=== PATIENT | female | born 1930 | race Caucasian/White ===

== ENCOUNTER 2019-11-21 12:41 | Inpatient (IN) ==
[2019-11-21] MEDS ORDERED: Morphine Sulfate 2 MG/ML SYRINGE IVP ONE (13:07)
[2019-11-21 14:31] LABS: Prothrombin Time 11.9 Seconds (9.4-12.1)
[2019-11-21 14:34] LABS: Activated Partial Thrombo Time 33.3 Seconds (26.0-36.0)
[2019-11-21 14:35] LABS: Basophils % 0.3 %; Eosinophils % 0.3 %; Hematocrit 44.2 % (35.3-44.9); Hemoglobin 14.8 g/dL (11.5-15.4); Immature Granulocytes % 1.5 % (0-4); Lymphocytes # 0.4 K/mcL (0.6-4.6); Lymphocytes % 3.7 %; Mean Corpuscular HGB Conc 33.5 g/dL (31.6-35.5); Mean Corpuscular Hemoglobin 30.4 pg (28.0-33.3); Mean Corpuscular Volume 90.8 fL (83.0-100.0); Mean Platelet Volume 10.4 fL (9.4-12.4); Monocytes # 0.4 K/mcL (0.0-1.3); Monocytes % 3.8 %; Neutrophils # 9.8 K/mcL (1.6-8.9); Platelet Count 176 K/mcL (140-400); Red Blood Count 4.87 M/mcL (3.82-4.97); Red Cell Distribution Width 13.3 % (11.5-14.5); Segmented Neutrophils % 90.4 %; White Blood Count 10.8 K/mcL (4.3-11.1)
[2019-11-21 14:49] LABS: BUN/Creatinine Ratio 16 (6-26); Blood Urea Nitrogen 15 mg/dL (8-23); Calcium 9.5 mg/dL (8.6-10.3); Carbon Dioxide 27 mEq/L (23-29); Chloride 105 mEq/L (98-107); Glucose 133 mg/dL (70-105); Osmolality,Calculated 293 (280-300); Potassium 3.5 mEq/L (3.5-5.1); Sodium 140 mEq/L (136-145); eGFR For African Americans > 60 (> 60); eGFR For Non-African Americans 56 (> 60)
[2019-11-21 14:53] LABS: Troponin I 0.08 ng/mL (< 0.04)
[2019-11-21] MEDS ORDERED: Ondansetron 4 MG/2 ML VIAL IVP PRN (16:28)
[2019-11-21] MEDS ORDERED: *HR* HYDROcodone/Acet 5/325 mg TABLET PO PRN (16:28)
[2019-11-21] MEDS ORDERED: *HR* OxyCODONE Immed Rel 5 MG TABLET PO PRN (16:28)
[2019-11-21] MEDS ORDERED: Naloxone 0.4 MG/ML INJ IVP PRN (16:28)
[2019-11-21] MEDS ORDERED: Acetaminophen 325 MG TABLET PO PRN (16:28)
[2019-11-21] MEDS ORDERED: Perflutren Lipid Microsphere 1.3 ML in 0.9 % Sodium Chloride 8.7 ML IVP PRN (16:38)
[2019-11-21] MEDS ORDERED: Morphine Sulfate 2 MG/ML SYRINGE IVP PRN (17:13)
[2019-11-21] MEDS ORDERED: *HR* HYDROmorphone (PF) 1 MG/ML SYRINGE IVP PRN (17:14)
[2019-11-21] MEDS: Acetaminophen 325 MG TABLET PO SCH (18:34)
[2019-11-21] MEDS ORDERED: *HR* Metoprolol 5 MG/5 ML VIAL IVP PRN (19:24)
[2019-11-21] MEDS: *HR* Heparin 5,000 UNIT/ML VIAL SQ SCH (21:26)
[2019-11-21] MEDS: Pantoprazole 40 MG VIAL IVP SCH (21:26)
[2019-11-22] MEDS: Acetaminophen 325 MG TABLET PO SCH ×5 (01:01→23:11)
[2019-11-22 04:28] LABS: Hematocrit 40.5 % (35.3-44.9); Hemoglobin 13.8 g/dL (11.5-15.4); Mean Corpuscular HGB Conc 34.1 g/dL (31.6-35.5); Mean Corpuscular Hemoglobin 30.8 pg (28.0-33.3); Mean Corpuscular Volume 90.4 fL (83.0-100.0); Mean Platelet Volume 10.4 fL (9.4-12.4); Platelet Count 164 K/mcL (140-400); Red Blood Count 4.48 M/mcL (3.82-4.97); Red Cell Distribution Width 13.3 % (11.5-14.5); White Blood Count 9.1 K/mcL (4.3-11.1)
[2019-11-22 04:38] LABS: INR 1.2; Prothrombin Time 13.4 Seconds (9.4-12.1)
[2019-11-22 04:56] LABS: BUN/Creatinine Ratio 17 (6-26); Blood Urea Nitrogen 15 mg/dL (8-23); Calcium 8.6 mg/dL (8.6-10.3); Carbon Dioxide 23 mEq/L (23-29); Chloride 104 mEq/L (98-107); Glucose 132 mg/dL (70-105); Magnesium 1.7 mg/dL (1.6-2.6); Osmolality,Calculated 285 (280-300); Phosphorous 2.6 mg/dL (2.7-4.5); Potassium 3.2 mEq/L (3.5-5.1); Sodium 136 mEq/L (136-145); eGFR For African Americans > 60 (> 60); eGFR For Non-African Americans > 60 (> 60)
[2019-11-22] MEDS: *HR* Heparin 5,000 UNIT/ML VIAL SQ SCH (05:58)
[2019-11-22] MEDS: Pantoprazole 40 MG VIAL IVP SCH (08:38)
[2019-11-22] MEDS ORDERED: *HR* OxyCODONE Immed Rel 5 MG TABLET PO PRN ×2 (09:53→09:56)
[2019-11-22] MEDS ORDERED: Morphine Sulfate 2 MG/ML SYRINGE IVP PRN (09:54)
[2019-11-22] MEDS ORDERED: Aspirin 325 MG TABLET PO ONE (10:38)
[2019-11-22] MEDS ORDERED: *HR* Heparin 5,000 UNIT/ML VIAL IVP PRN ×2 (10:39)
[2019-11-22] MEDS ORDERED: *HR* Heparin 5,000 UNIT/ML VIAL IVP ONE (10:39)
[2019-11-22] MEDS ORDERED: Morphine Sulfate 2 MG/ML SYRINGE IVP ONE (10:39)
[2019-11-22] MEDS ORDERED: Heparin 25,000 UNIT/250 ML D5W 25,000 UNIT/250 ML IV.SOLN IVC SCH (10:45)
[2019-11-22] MEDS ORDERED: *HR* Promethazine 25 MG/ML VIAL IVP PRN (10:47)
[2019-11-22] MEDS ORDERED: Isovue-370 500 ML BOTTLE IVP ONE (10:56)
[2019-11-22] MEDS ORDERED: Nitroprusside 50 MG in D5% in Water 250 ML IVC SCH (11:00)
[2019-11-22] MEDS ORDERED: Nitroglycerin 0.4 MG TAB.SUBL SL ONE (11:05)
[2019-11-22] MEDS ORDERED: Nitroglycerin 0.4 MG TAB.SUBL SL PRN (11:08)
[2019-11-22 11:24] LABS: Heparin anti-factor XA UFH 0.14 IU/mL (0.30-0.70)
[2019-11-22 11:25] LABS: INR 1.2; Prothrombin Time 13.5 Seconds (9.4-12.1)
[2019-11-22] MEDS ORDERED: Heparin 1,000 UNITS/500 mL 500 ML ONE (13:48)
[2019-11-22] MEDS ORDERED: *HR* Heparin 10,000 UNIT/10 ML VIAL ONE (13:48)
[2019-11-22] MEDS ORDERED: 0.9 % Sodium Chloride 2,000 ML ONE (13:48)
[2019-11-22] MEDS ORDERED: ISOVUE-370 200 ML INFUS..BTL ONE (13:49)
[2019-11-22] MEDS ORDERED: Nitroglycerin 1,000 MCG/10 ML VIAL IV ONE (13:49)
[2019-11-22] MEDS ORDERED: *HR* Midazolam HCl 2 MG/2 ML VIAL ONE (14:02)
[2019-11-22] MEDS ORDERED: *HR* FentaNYL (PF) 100 MCG/2 ML VIAL ONE (14:03)
[2019-11-22] MEDS: 0.9 % Sodium Chloride w KCl 40 MEQ/1,000 ML MLS IVC SCH ×2 (16:26→23:17)
[2019-11-23] MEDS: Acetaminophen 325 MG TABLET PO SCH ×4 (05:05→23:36)
[2019-11-23] MEDS: 0.9 % Sodium Chloride w KCl 40 MEQ/1,000 ML MLS IVC SCH (07:38)
[2019-11-23] MEDS: Pantoprazole 40 MG VIAL IVP SCH (07:39)
[2019-11-23 08:34] LABS: Basophils % 0.5 %; Hemoglobin 12.5 g/dL (11.5-15.4); Mean Corpuscular Volume 90.9 fL (83.0-100.0); Platelet Count 137 K/mcL (140-400); Red Cell Distribution Width 13.9 % (11.5-14.5)
[2019-11-23 08:36] LABS: Eosinophils # 0.4 K/mcL (0.0-0.6); Eosinophils % 5.5 %; Hematocrit 37.9 % (35.3-44.9); Immature Granulocytes % 0.6 % (0-4); Immature Platelets 4.7 % (1.1-6.1); Lymphocytes # 0.5 K/mcL (0.6-4.6); Lymphocytes % 6.5 %; Monocytes # 0.4 K/mcL (0.0-1.3); Monocytes % 4.7 %; Neutrophils # 6.4 K/mcL (1.6-8.9); Nucleated Red Blood Cells 0.3 /100 WBC (0); Red Blood Count 4.17 M/mcL (3.82-4.97); Segmented Neutrophils % 82.2 %; White Blood Count 7.8 K/mcL (4.3-11.1)
[2019-11-23 08:52] LABS: Platelet Estimate Normal (Normal); Reactive Lymphocytes Present (Not Present); Toxic Granulation Present (Not Present)
[2019-11-23] MEDS ORDERED: Aspirin Enteric Coated 81 MG Tablet PO SCH (09:00)
[2019-11-23 09:03] LABS: BUN/Creatinine Ratio 15 (6-26); Blood Urea Nitrogen 13 mg/dL (8-23); Calcium 7.3 mg/dL (8.6-10.3); Carbon Dioxide 23 mEq/L (23-29); Chloride 111 mEq/L (98-107); Glucose 104 mg/dL (70-105); Osmolality,Calculated 286 (280-300); Potassium 4.1 mEq/L (3.5-5.1); Sodium 138 mEq/L (136-145); eGFR For African Americans > 60 (> 60); eGFR For Non-African Americans 60 (> 60)
[2019-11-23] MEDS ORDERED: Vancomycin 1,000 MG VIAL ONE (14:57)
[2019-11-23] MEDS ORDERED: Ethanol\\Acetic Acid\\Na Ace\\Ben 1,000 ML IRRIG.SOLN IR ONE (14:57)
[2019-11-23] MEDS ORDERED: *HR* FentaNYL (PF) 100 MCG/2 ML VIAL ONE ×2 (14:58→16:26)
[2019-11-23] MEDS ORDERED: *HR* Propofol 200 MG/20 ML VIAL IVP ONE (14:58)
[2019-11-23] MEDS ORDERED: *HR* Rocuronium Bromide 50 MG/5 ML VIAL ONE (14:59)
[2019-11-23] MEDS ORDERED: Dexamethasone 4 MG/ML VIAL ONE (14:59)
[2019-11-23] MEDS ORDERED: Ondansetron 4 MG/2 ML VIAL ONE (14:59)
[2019-11-23] MEDS ORDERED: Lidocaine -MPF 2% 2 ML VIAL ONE (14:59)
[2019-11-23] MEDS ORDERED: *HR* Succinylcholine 200 MG/10 ML VIAL IVP ONE (14:59)
[2019-11-23] MEDS ORDERED: Albumin Human 5% 0 GM/0 ML IV.SOLN ONE (15:45)
[2019-11-23] MEDS ORDERED: Acetaminophen IV 1,000 MG/100 ML BAG ONE (15:46)
[2019-11-23] MEDS ORDERED: *HR* HYDROmorphone PF 0.5 MG/0.5 ML SYRINGE IVP PRN (15:58)
[2019-11-23] MEDS ORDERED: *HR* FentaNYL (PF) 100 MCG/2 ML VIAL IVP PRN (15:58)
[2019-11-23] MEDS ORDERED: *HR* Etomidate 40 MG/20 ML VIAL IVP ONE (16:09)
[2019-11-23] MEDS ORDERED: *HR* HYDROMORPHONE 2 MG/ML VIAL ONE (16:34)
[2019-11-23] MEDS ORDERED: *HR* PHENYLEPHRINE 1,000 MCG/10 ML SYRINGE IVP ONE (16:56)
[2019-11-23 17:46] LABS: Hematocrit 39.5 % (35.3-44.9); Hemoglobin 12.8 g/dL (11.5-15.4)
[2019-11-23] MEDS ORDERED: HYDROcodone BIT/Homatropine 5 MG TABLET PO PRN (18:38)
[2019-11-23] MEDS ORDERED: *HR* Promethazine 25 MG/ML VIAL IVP PRN (18:38)
[2019-11-23] MEDS ORDERED: MOM Conc 10 ML UD.LIQ PO PRN (18:38)
[2019-11-23] MEDS ORDERED: Sennosides 8.6 MG TABLET PO PRN (18:38)
[2019-11-23] MEDS ORDERED: *HR* Metoprolol 5 MG/5 ML VIAL IVP PRN (18:38)
[2019-11-23] MEDS ORDERED: Naloxone 0.4 MG/ML INJ IVP PRN ×2 (18:38)
[2019-11-23] MEDS ORDERED: Dextrose Gel 15 GM/37.5 ML TUBE PO PRN ×2 (18:38)
[2019-11-23] MEDS ORDERED: Morphine Sulfate 2 MG/ML SYRINGE IVP PRN (18:38)
[2019-11-23] MEDS ORDERED: D5% in Water 1,000 ML IVC PRN (18:38)
[2019-11-23] MEDS ORDERED: Ondansetron 4 MG/2 ML VIAL IVP PRN (18:38)
[2019-11-23] MEDS ORDERED: *HR* Dextrose 50 % in Water (Vial) 50 ML VIAL IVP PRN (18:38)
[2019-11-23] MEDS ORDERED: Nitroglycerin 0.4 MG TAB.SUBL SL PRN (18:38)
[2019-11-23] MEDS: Ascorbic Acid 500 MG TABLET PO SCH (21:17)
[2019-11-23] MEDS: Ringers Solution, Lactated 1,000 ML IVC SCH (21:30)
[2019-11-23] MEDS: CeFAZolin 2 GM/120 ML BAG IVPB SCH (23:33)
[2019-11-24] MEDS: Acetaminophen 325 MG TABLET PO SCH ×4 (05:45→23:49)
[2019-11-24] MEDS ORDERED: *HR* Heparin 5,000 UNIT/ML VIAL SQ SCH (06:00)
[2019-11-24] MEDS: Ascorbic Acid 500 MG TABLET PO SCH ×2 (07:56→15:59)
[2019-11-24] MEDS: Multivit/Ca/Min/Fe/FA 1 TAB TABLET PO SCH (07:56)
[2019-11-24] MEDS: CeFAZolin 2 GM/120 ML BAG IVPB SCH (07:57)
[2019-11-24] MEDS: Pantoprazole 40 MG VIAL IVP SCH (07:59)
[2019-11-24] MEDS: Ringers Solution, Lactated 1,000 ML IVC SCH (11:05)
[2019-11-24] MEDS: Aspirin Enteric Coated 81 MG Tablet PO SCH (15:59)
[2019-11-25] MEDS: Acetaminophen 325 MG TABLET PO SCH ×4 (05:16→23:50)
[2019-11-25] MEDS: Pantoprazole 40 MG VIAL IVP SCH (08:40)
[2019-11-25] MEDS: Multivit/Ca/Min/Fe/FA 1 TAB TABLET PO SCH (08:41)
[2019-11-25] MEDS: Ascorbic Acid 500 MG TABLET PO SCH ×2 (08:41→17:37)
[2019-11-25] MEDS: Aspirin Enteric Coated 81 MG Tablet PO SCH (08:41)
[2019-11-25] MEDS: Ringers Solution, Lactated 1,000 ML IVC SCH ×2 (08:50→11:17)
[2019-11-25 10:56] LABS: Hematocrit 30.7 % (35.3-44.9)
[2019-11-25 10:59] LABS: Hemoglobin 9.9 g/dL (11.5-15.4)
[2019-11-25] MEDS ORDERED: *HR* OxyCODONE Immed Rel 5 MG TABLET PO PRN (16:26)
[2019-11-25 18:56] LABS: Hematocrit 30.7 % (35.3-44.9); Hemoglobin 9.9 g/dL (11.5-15.4)
[2019-11-26] MEDS: Acetaminophen 325 MG TABLET PO SCH ×3 (05:47→18:20)
[2019-11-26 06:46] LABS: Hematocrit 29.3 % (35.3-44.9); Hemoglobin 9.5 g/dL (11.5-15.4)
[2019-11-26] MEDS ORDERED: *HR* Enoxaparin 40 MG/0.4 ML SYRINGE SQ SCH (08:00)
[2019-11-26] MEDS: Aspirin Enteric Coated 81 MG Tablet PO SCH ×2 (10:10→11:04)
[2019-11-26] MEDS: Multivit/Ca/Min/Fe/FA 1 TAB TABLET PO SCH (10:10)
[2019-11-26] MEDS: Ascorbic Acid 500 MG TABLET PO SCH ×2 (10:10→16:44)
[2019-11-26 18:39] VITALS: BP 129/79
== END 2019-11-26 20:39 | DRG 469 ==
LOC: EMEROOARM 12:41 → 3NENU 12:41 → SUATTDRO 15:46 → 3NENU 16:23 → 2ANU 11-22 12:55 → 3NENU 11-23 16:22
PROVIDERS: ADMIT Family Medicine; ATTEND Student in an Organized Health Care Education/Training Program